=== PATIENT | female | born 1950 | race Caucasian/White ===

== ENCOUNTER → 2017-08-15 | Outpatient (CLI) | payer OTHER ==
[~2017-08-15] MED LIST: ADVIL LIQUI-GE200 MG PO; LISINOPRIL10 MG PO; MEDROLDOSEPACK PO; PERCOCET 5-3251 EACH PO
== END ==
LOC: M.RAD 13:49
DX: R05 Cough (principal); R06.02 Shortness of breath

== ENCOUNTER → 2020-08-17 | Outpatient (CLI) | payer OTHER | LOC: M.RAD 06-10 10:23 | PROVIDERS: ATTEND Family Medicine | DX: Z12.31 Encounter for screening mammogram for malignant neoplasm of breast (principal); Z78.0 Asymptomatic menopausal state ==